=== PATIENT | female | born 1935 | race Caucasian/White ===

== ENCOUNTER → 2017-10-17 | Outpatient (CLI) | payer OTHER ==
[~2017-10-17] MED LIST: ACET325 PO; ACETAMINOPHEN500 MG PO; ACYC400 PO; BISA10S PR; Bactrim Ds Tab1 EACH PO; CALCAVITD PO; CIPRO500 MG PO; CLOB.05TO; CLON.5 PO; CLON1 PO; CLOP75 PO; COSENTYX P150 MG/11 SC; FAMO40 PO; FENT25TP TOP; FENTANYL TOP; GAS X; HYDACE7.5 PO; HYDMOR2; HYDR1TAB94 PO; Keflex500 MG PO; LOPE2C PO; METO25 PO; METO25ER PO; MULVITA PO; MULVITMIND; Milk Of Ma400 MG/5 M PO; NYSTATIN1 EAC1 MC; ONDA4ODT MM; OSEL75CA PO; OXYC5 PO; Omeprazole20 M1; PREG150 PO; PREG25 PO; PREG50 PO; PREG75 PO; PROM25; SUCR1 PO; TRIA80TC TOP; ZOLP6.25 PO; [UNRECOGNIZED DRUG - CODE] PO; [UNRECOGNIZED DRUG - OTHER] PO
[2017-10-18 16:31] LABS: Appearance, Urine Turbid (Clear); Blood, Urine 1+ (Neg); Color, Urine Amber (P-Yellow); Glucose Qualitative, Urine Neg (Neg); Ketones, Urine 2+ (Neg); Leukocyte Esterase, Urine 2+ (Neg); Nitrite, Urine Neg (Neg); Protein, Urine 2+ (Neg); Urobilinogen, Urine 2+ (Normal)
[2017-10-18 16:37] LABS: Bilirubin, Urine 1+ (Neg)
[2017-10-18 16:38] LABS: Amorphous Heavy (0-Heavy); Bacteria Many /hpf; Calcium Oxalate Crystals Few /hpf; Red Blood Cells, Urine 0-2 /hpf (0-2); Squamous Epithelial Cells Not Seen /hpf (Few); White Blood Cells, Urine 0-2 /hpf (0-5)
== END ==
LOC: LAB SHORT 17:20
DX: N39.0 Urinary tract infection, site not specified (principal)
CPT/HCPCS: 81001; 87077; 87086; 87186

== ENCOUNTER 2017-11-04 12:14 | Emergency (ER) | payer OTHER ==
[~2017-11-04] VITALS: Ht 139.7 cm; Wt 38.6 kg
[~2017-11-04 12:14] MED LIST changes: -CLOB.05TO; -COSENTYX P150 MG/11 SC; -HYDR1TAB94 PO; -OSEL75CA PO; -Omeprazole20 M1; -PREG25 PO
[2017-11-04] MEDS ORDERED: CLOB.05TO (13:03)
[2017-11-04] MEDS ORDERED: COSENTYX P150 MG/11 SC (13:05)
[2017-11-04] MEDS ORDERED: Omeprazole20 M1 (13:06)
[2017-11-04] MEDS ORDERED: HYDR1TAB94 PO (13:07)
[2017-11-04] MEDS ORDERED: OSEL75CA PO (13:08)
[2017-11-05] MEDS ORDERED: PREG25 PO (18:40)
== END 2017-11-04 15:09 | disposition home or self-care (01) ==
LOC: ER 12:14
DX: S70.02XA Contusion of left hip, initial encounter (principal); S40.012A Contusion of left shoulder, initial encounter; S00.83XA Contusion of other part of head, initial encounter; X58.XXXA Exposure to other specified factors, initial encounter; Z87.891 Personal history of nicotine dependence; Z88.0 Allergy status to penicillin; Z88.5 Allergy status to narcotic agent; Z88.8 Allergy status to other drugs, medicaments and biological substances; Z88.1 Allergy status to other antibiotic agents; Z79.899 Other long term (current) drug therapy; Z79.891 Long term (current) use of opiate analgesic
CPT/HCPCS: 73502; 99283

== ENCOUNTER 2017-11-05 18:23 | Emergency (ER) | payer OTHER ==
[~2017-11-05] VITALS: Ht 144.8 cm; Wt 36.3 kg
[~2017-11-05 18:23] MED LIST changes: +CLOB.05TO; +COSENTYX P150 MG/11 SC; +HYDR1TAB94 PO; +OSEL75CA PO; +Omeprazole20 M1
[2017-11-05 18:36] LABS: Source, Urine Catheter
[2017-11-05] MEDS ORDERED: PREG25 PO (18:40)
[2017-11-05 18:46] LABS: Blood, Urine 1+ (Neg); Glucose Qualitative, Urine Neg (Neg); Ketones, Urine 1+ (Neg); Leukocyte Esterase, Urine 1+ (Neg); Nitrite, Urine Neg (Neg); Protein, Urine 2+ (Neg); Specific Gravity, Urine 1.015 (1.003-1.022); Urobilinogen, Urine 3+ (Normal)
[2017-11-05 19:20] LABS: Appearance, Urine Hazy (Clear); Color, Urine Yellow (P-Yellow)
[2017-11-05 19:23] LABS: Bacteria Few /hpf; Red Blood Cells, Urine 0-2 /hpf (0-2); Squamous Epithelial Cells Few /hpf (Few); White Blood Cells, Urine 0-2 /hpf (0-5)
== END 2017-11-05 21:18 | disposition home or self-care (01) ==
LOC: ER 18:23
PROVIDERS: Emergency Medicine
DX: S80.12XA Contusion of left lower leg, initial encounter (principal); W19.XXXA Unspecified fall, initial encounter; Z88.1 Allergy status to other antibiotic agents; Z88.0 Allergy status to penicillin; Z88.5 Allergy status to narcotic agent; Z88.8 Allergy status to other drugs, medicaments and biological substances; Z79.899 Other long term (current) drug therapy; Z79.891 Long term (current) use of opiate analgesic; Z87.891 Personal history of nicotine dependence
CPT/HCPCS: 81001; 87077; 87086; 87186; 99283; P9612

== ENCOUNTER → 2017-12-15 | Outpatient (CLI) | payer OTHER ==
[~2017-12-15] MED LIST changes: +PREG25 PO
[2017-12-15 15:29] LABS: Bilirubin, Urine Neg (Neg); Blood, Urine 1+ (Neg); Glucose Qualitative, Urine Neg (Neg); Ketones, Urine Neg (Neg); Leukocyte Esterase, Urine 1+ (Neg); Nitrite, Urine Neg (Neg); Protein, Urine Neg (Neg); Urobilinogen, Urine 2+ (Normal)
[2017-12-15 16:00] LABS: Appearance, Urine Cloudy (Clear); Color, Urine Yellow (P-Yellow)
[2017-12-15 16:07] LABS: Bacteria Many /hpf; Red Blood Cells, Urine 0-2 /hpf (0-2); Squamous Epithelial Cells Few /hpf (Few)
== END | disposition home or self-care (01) ==
LOC: LAB SHORT 15:07 → LAB 15:07
DX: N39.0 Urinary tract infection, site not specified (principal)
CPT/HCPCS: 81001; 87077; 87086; 87186

== ENCOUNTER → 2018-03-04 | Outpatient (CLI) | payer OTHER ==
[2018-03-04 11:12] LABS: Bilirubin, Urine Neg (Neg); Blood, Urine 1+ (Neg); Glucose Qualitative, Urine Neg (Neg); Ketones, Urine Neg (Neg); Leukocyte Esterase, Urine 3+ (Neg); Nitrite, Urine Pos (Neg); Protein, Urine 1+ (Neg); Urobilinogen, Urine NORM (Normal); pH, Urine 6.5 (5.0-8.0)
[2018-03-04 11:32] LABS: Appearance, Urine Hazy (Clear); Color, Urine Yellow (P-Yellow)
[2018-03-04 11:37] LABS: White Blood Cells, Urine 25-50 /hpf (0-5)
[2018-03-04 11:38] LABS: Bacteria Mod /hpf; Squamous Epithelial Cells Few /hpf (Few)
== END ==
LOC: LAB SHORT 11:03 → LAB 11:03
DX: N39.0 Urinary tract infection, site not specified (principal)
CPT/HCPCS: 81001; 87077; 87086; 87186

== ENCOUNTER → 2018-04-04 | Outpatient (CLI) | payer OTHER ==
[2018-04-04 11:52] LABS: Bilirubin, Urine Neg (Neg); Blood, Urine 5+ (Neg); Glucose Qualitative, Urine Neg (Neg); Ketones, Urine Neg (Neg); Leukocyte Esterase, Urine 2+ (Neg); Nitrite, Urine Pos (Neg); Protein, Urine Neg (Neg); Specific Gravity, Urine 1.015 (1.003-1.022); Urobilinogen, Urine 1+ (Normal)
[2018-04-04 12:05] LABS: Appearance, Urine Clear (Clear); Color, Urine Yellow (P-Yellow)
[2018-04-04 12:08] LABS: Bacteria Many /hpf; Squamous Epithelial Cells Few /hpf (Few)
== END | disposition home or self-care (01) ==
LOC: LAB 11:13 → LAB SHORT 11:13
DX: N39.0 Urinary tract infection, site not specified (principal)
CPT/HCPCS: 81001; 87077; 87086; 87186

== ENCOUNTER → 2018-04-27 | Outpatient (CLI) | payer OTHER | END | disposition home or self-care (01) | LOC: LAB 16:45 → LAB SHORT 16:45 | DX: N39.0 Urinary tract infection, site not specified (principal) | CPT/HCPCS: 87077; 87086; 87186 ==

== ENCOUNTER → 2018-10-09 | Outpatient (CLI) | payer OTHER ==
[~2018-10-09] MED LIST changes: +CEPH500 PO; +Oxycodone-Apap1 EAC3 PO
[2018-10-09 15:41] LABS: Appearance, Urine Cloudy (Clear); Bilirubin, Urine Neg (Neg); Blood, Urine 1+ (Neg); Color, Urine Yellow (P-Yellow); Glucose Qualitative, Urine Neg (Neg); Ketones, Urine Neg (Neg); Leukocyte Esterase, Urine 1+ (Neg); Nitrite, Urine Pos (Neg); Protein, Urine 1+ (Neg); Urobilinogen, Urine 1+ (Normal); pH, Urine 6.5 (5.0-8.0)
[2018-10-09 15:47] LABS: Bacteria Many /hpf; Squamous Epithelial Cells Rare /hpf (Few)
== END | disposition home or self-care (01) ==
LOC: LAB SHORT 13:30 → LAB 13:30
DX: N39.0 Urinary tract infection, site not specified (principal)
CPT/HCPCS: 81001; 87077; 87086; 87186

== ENCOUNTER 2018-10-13 09:34 | Emergency (ER) | payer OTHER ==
[~2018-10-13] VITALS: Ht 137.2 cm; Wt 42.2 kg
[~2018-10-13 09:34] MED LIST changes: -CEPH500 PO; -Oxycodone-Apap1 EAC3 PO
[2018-10-13] MEDS ORDERED: Oxycodone-Apap1 EAC3 PO (10:05)
[2018-10-13] MEDS ORDERED: CEPH500 PO (11:42)
== END 2018-10-13 13:42 | disposition home or self-care (01) ==
LOC: ER 09:34
DX: S81.811A Laceration without foreign body, right lower leg, initial encounter (principal); S81.812A Laceration without foreign body, left lower leg, initial encounter; W22.8XXA Striking against or struck by other objects, initial encounter; Z87.891 Personal history of nicotine dependence; Z88.0 Allergy status to penicillin; Z88.8 Allergy status to other drugs, medicaments and biological substances; Z88.1 Allergy status to other antibiotic agents; Z88.5 Allergy status to narcotic agent; Z79.899 Other long term (current) drug therapy; Z79.891 Long term (current) use of opiate analgesic
CPT/HCPCS: 12005; 90471; 90714; 99283-25

== ENCOUNTER 2018-10-13 17:41 | Emergency (ER) | payer OTHER ==
[~2018-10-13] VITALS: Ht 147.3 cm; Wt 54.4 kg
[~2018-10-13 17:41] MED LIST changes: +CEPH500 PO; +Oxycodone-Apap1 EAC3 PO
== END 2018-10-13 18:00 | disposition home or self-care (01) ==
LOC: ER 17:41
DX: S81.812D Laceration without foreign body, left lower leg, subsequent encounter (principal); V29.9XXD Motorcycle rider (driver) (passenger) injured in unspecified traffic accident, subsequent encounter; Z88.0 Allergy status to penicillin; Z88.1 Allergy status to other antibiotic agents; Z88.8 Allergy status to other drugs, medicaments and biological substances; Z79.899 Other long term (current) drug therapy; Z79.891 Long term (current) use of opiate analgesic; Z87.891 Personal history of nicotine dependence

== ENCOUNTER → 2018-10-22 | Outpatient (CLI) | payer OTHER ==
[2018-10-22 15:13] LABS: Appearance, Urine Hazy (Clear); Bilirubin, Urine Neg (Neg); Blood, Urine Neg (Neg); Color, Urine Yellow (P-Yellow); Glucose Qualitative, Urine Neg (Neg); Ketones, Urine 1+ (Neg); Leukocyte Esterase, Urine 1+ (Neg); Nitrite, Urine Neg (Neg); Protein, Urine 1+ (Neg); Urobilinogen, Urine 2+ (Normal)
[2018-10-22 15:26] LABS: Bacteria Many /hpf; Red Blood Cells, Urine 0-2 /hpf (0-2); Squamous Epithelial Cells Not Seen /hpf (Few); White Blood Cells, Urine 0-2 /hpf (0-5)
== END | disposition home or self-care (01) ==
LOC: LAB SHORT 13:45 → LAB 13:45
DX: N39.0 Urinary tract infection, site not specified (principal)
CPT/HCPCS: 81001; 87077; 87086; 87186

== ENCOUNTER 2018-11-05 00:26 | Day surgery (SDC) | payer OTHER | END 2018-11-05 23:56 | disposition home or self-care (01) | LOC: WOUND 00:26 | PROC: 0KBT0ZZ Excision of Left Lower Leg Muscle, Open Approach (ICD-10-PCS; principal; 2018-11-05) | DX: S81.812A Laceration without foreign body, left lower leg, initial encounter (principal); T81.31XA Disruption of external operation (surgical) wound, not elsewhere classified, initial encounter; S81.811A Laceration without foreign body, right lower leg, initial encounter | CPT/HCPCS: G0463 ==

== ENCOUNTER → 2018-12-09 | Outpatient (CLI) | payer OTHER ==
[2018-12-09 18:40] LABS: Bilirubin, Urine Neg (Neg); Blood, Urine 1+ (Neg); Glucose Qualitative, Urine Neg (Neg); Ketones, Urine Neg (Neg); Leukocyte Esterase, Urine 2+ (Neg); Nitrite, Urine Neg (Neg); Protein, Urine 1+ (Neg); Specific Gravity, Urine 1.005 (1.003-1.022); Urobilinogen, Urine NORM (Normal)
[2018-12-09 18:45] LABS: Appearance, Urine Clear (Clear); Color, Urine Yellow (P-Yellow)
[2018-12-09 18:46] LABS: White Blood Cells, Urine 25-50 /hpf (0-5)
[2018-12-09 18:47] LABS: Bacteria Mod /hpf; Squamous Epithelial Cells Rare /hpf (Few)
== END | disposition home or self-care (01) ==
LOC: LAB 17:16 → LAB SHORT 17:16
DX: N39.0 Urinary tract infection, site not specified (principal)
CPT/HCPCS: 81001; 87077; 87086; 87186

== ENCOUNTER → 2019-01-23 | Outpatient (CLI) | payer OTHER ==
[2019-01-23 16:01] LABS: Source, Urine Clean Catch
[2019-01-23 16:16] LABS: Bilirubin, Urine Neg (Neg); Blood, Urine 1+ (Neg); Glucose Qualitative, Urine Neg (Neg); Ketones, Urine 1+ (Neg); Leukocyte Esterase, Urine 1+ (Neg); Nitrite, Urine Pos (Neg); Protein, Urine 1+ (Neg); Specific Gravity, Urine 1.015 (1.003-1.022); Urobilinogen, Urine 1+ (Normal); pH, Urine 6.5 (5.0-8.0)
[2019-01-23 17:19] LABS: Appearance, Urine Cloudy (Clear); Color, Urine Yellow (P-Yellow)
[2019-01-23 18:31] LABS: Amorphous Light (0-Heavy); Bacteria Many /hpf; Mucus Mod (0-Heavy); Red Blood Cells, Urine 0-2 /hpf (0-2); Squamous Epithelial Cells Mod /hpf (Few)
== END | disposition home or self-care (01) ==
LOC: LAB 13:00 → LAB SHORT 13:00
DX: N39.0 Urinary tract infection, site not specified (principal)
CPT/HCPCS: 81001; 87077; 87086; 87186

== ENCOUNTER → 2019-03-04 | Outpatient (CLI) | payer OTHER ==
[2019-03-05 10:22] LABS: Source, Urine Clean Catch
[2019-03-05 10:38] LABS: Bilirubin, Urine Neg (Neg); Blood, Urine 1+ (Neg); Glucose Qualitative, Urine Neg (Neg); Ketones, Urine Neg (Neg); Leukocyte Esterase, Urine 3+ (Neg); Nitrite, Urine Neg (Neg); Protein, Urine 1+ (Neg); Specific Gravity, Urine 1.025 (1.003-1.022); Urobilinogen, Urine 1+ (Normal)
[2019-03-05 10:52] LABS: Appearance, Urine Hazy (Clear); Color, Urine Yellow (P-Yellow)
[2019-03-05 10:53] LABS: Bacteria Many /hpf; Red Blood Cells, Urine 0-2 /hpf (0-2); Squamous Epithelial Cells Few /hpf (Few)
== END | disposition home or self-care (01) ==
LOC: LAB SHORT 16:45 → LAB 16:45
DX: N39.0 Urinary tract infection, site not specified (principal)
CPT/HCPCS: 81001; 87077; 87086; 87186

== ENCOUNTER 2019-03-15 19:55 | Emergency (ER) | payer OTHER ==
[~2019-03-15] VITALS: Ht 134.6 cm; Wt 43.1 kg
[2019-03-15] MEDS ORDERED: MYLANTA (20:25)
[2019-03-15] MEDS ORDERED: IBUPROFEN200 MG PO (20:26)
[2019-03-15] MEDS ORDERED: CHOL10002 PO (21:02)
[2019-03-15] MEDS ORDERED: CYAN500 PO (21:11)
[2019-03-15] MEDS ORDERED: NITR100CA PO (21:11)
== END 2019-03-16 00:13 | disposition home or self-care (01) ==
LOC: ER 19:55
DX: S89.92XA Unspecified injury of left lower leg, initial encounter (principal); W17.89XA Other fall from one level to another, initial encounter; Z88.1 Allergy status to other antibiotic agents; Z88.0 Allergy status to penicillin; Z88.5 Allergy status to narcotic agent; Z79.899 Other long term (current) drug therapy; Z79.891 Long term (current) use of opiate analgesic; Z87.891 Personal history of nicotine dependence
CPT/HCPCS: 73562-LT; 96372; 99283-25; A9270-GY; J1885

== ENCOUNTER 2019-04-28 08:59 | Emergency (ER) | payer OTHER ==
[~2019-04-28] VITALS: Ht 137.2 cm; Wt 40.4 kg
[~2019-04-28 08:59] MED LIST changes: +CHOL10002 PO; +CYAN500 PO; +IBUPROFEN200 MG PO; +MYLANTA; +NITR100CA PO
[2019-04-28] MEDS ORDERED: CETAPHIL473 ML (09:20)
[2019-04-28] MEDS ORDERED: ANTACID 1000-21 EACH PO (09:20)
[2019-04-28] MEDS ORDERED: CLORTRIMAZOLE (09:21)
[2019-04-28] MEDS ORDERED: MIRALAX17 GM PO (09:22)
[2019-04-28] MEDS ORDERED: Loratadine10 MG PO (09:22)
[2019-04-28] MEDS ORDERED: Milk Of Ma400 MG/5 M PO (09:22)
[2019-04-28] MEDS ORDERED: NYSTRITC (09:23)
[2019-04-28] MEDS ORDERED: Bactrim Ds Tab1 EACH PO (10:22)
[2019-04-28] MEDS ORDERED: Norco 5-325 Ta1 EACH PO (10:42)
== END 2019-04-28 10:53 | disposition home or self-care (01) ==
LOC: ER 08:59
DX: L89.619 Pressure ulcer of right heel, unspecified stage (principal); Z88.1 Allergy status to other antibiotic agents; Z88.0 Allergy status to penicillin; Z88.5 Allergy status to narcotic agent; Z79.899 Other long term (current) drug therapy; Z79.891 Long term (current) use of opiate analgesic; K21.9 Gastro-esophageal reflux disease without esophagitis; Z87.891 Personal history of nicotine dependence
CPT/HCPCS: 36415; 73630; 99283-25; A9270-GY

== ENCOUNTER → 2019-06-18 | Outpatient (CLI) | payer OTHER ==
[~2019-06-18] MED LIST changes: +ANTACID 1000-21 EACH PO; +CETAPHIL473 ML; +CLORTRIMAZOLE; +Loratadine10 MG PO; +MIRALAX17 GM PO; +NYSTRITC; +Norco 5-325 Ta1 EACH PO
== END | disposition home or self-care (01) ==
LOC: LAB 15:30 → LAB SHORT 15:30
DX: S81.809A Unspecified open wound, unspecified lower leg, initial encounter (principal)
CPT/HCPCS: 87070; 87205

== ENCOUNTER 2019-10-31 18:38 | Emergency (ER) | payer OTHER ==
[~2019-10-31] VITALS: Ht 147.3 cm; Wt 38.6 kg
== END 2019-10-31 23:15 | disposition home or self-care (01) ==
LOC: ER 18:38
DX: Z88.1 Allergy status to other antibiotic agents (principal); Z88.0 Allergy status to penicillin; Z88.5 Allergy status to narcotic agent; Z88.8 Allergy status to other drugs, medicaments and biological substances; Z79.899 Other long term (current) drug therapy; K21.9 Gastro-esophageal reflux disease without esophagitis; Z87.891 Personal history of nicotine dependence
CPT/HCPCS: 99283

== ENCOUNTER → 2020-01-27 | Outpatient (CLI) | payer OTHER ==
[2020-01-27 17:02] LABS: BASOPHILS ABSOLUTE AUTO 0.01 K/mm3 (0.00-0.23); BASOPHILS PERCENT AUTO 0 % (0-2); EOSINOPHILS ABSOLUTE AUTO 0.03 K/mm3 (0.00-0.68); EOSINOPHILS PERCENT AUTO 1 % (0-6); Hematocrit 30.9 % (33.0-51.0); Hemoglobin 10.2 g/dL (11.5-16.0); IMMATURE GRAN ABSOLUTE AUTO 0.01 K/mm3 (0.00-0.10); IMMATURE GRAN PERCENT AUTO 0 % (0-1); LYMPHOCYTES PERCENT AUTO 13 % (21-46); MONOCYTES ABSOLUTE AUTO 0.31 K/mm3 (0.16-1.47); MONOCYTES PERCENT AUTO 8 % (4-13); Mean Corpuscular HGB 35.2 pg (26.0-34.0); Mean Corpuscular Volume 107 fL (80-100); Mean Platelet Volume 11.9 fL (9.1-12.4); NEUTROPHILS ABSOLUTE AUTO 3.15 K/mm3 (1.96-9.15); NEUTROPHILS PERCENT AUTO 79 % (41-73); Platelet Count 130 K/mm3 (150-400); RDW Coefficient Variation 15.5 % (11.7-14.2); RDW Standard Deviation 61.1 fL (35.1-46.3); White Blood Cell Count 4.01 K/mm3 (4.00-11.30)
[2020-01-27 17:36] LABS: Alanine Aminotransfer (ALT/SGP 7 U/L (12-78); Albumin, Blood 2.5 g/dL (3.4-5.0); Albumin/Globulin Ratio 0.9 (0.8-1.8); Alk Phos 89 U/L (50-136); Anion Gap 6 mmol/L (6-16); Aspartate Aminotrans (AST/SGOT 19 U/L (12-37); Bilirubin, Total 0.8 mg/dL (0.1-1.0); Blood Urea Nitrogen 21 mg/dL (8-24); Bun/Creatinine Ratio 29.2 (12.0-20.0); CO2, Blood 26 mmol/L (21-32); Chloride, Blood 109 mmol/L (98-108); Creatinine, Blood 0.72 mg/dL (0.40-1.00); Globulin, Blood 2.7 g/dL (2.2-4.0); Glomerular Filtration Rate >60 (60-); Glucose, Blood 68 mg/dL (70-99); Potassium, Blood 3.5 mmol/L (3.5-5.5); Sodium, Blood 141 mmol/L (136-145); Total Protein, Blood 5.2 g/dL (6.4-8.2)
== END | disposition home or self-care (01) ==
LOC: LAB 15:49 → LAB SHORT 15:49
PROVIDERS: Nurse Practitioner Family
DX: I70.233 Atherosclerosis of native arteries of right leg with ulceration of ankle (principal); R60.0 Localized edema
CPT/HCPCS: 80053; 83880; 85025

== ENCOUNTER → 2020-02-11 | Outpatient (CLI) | payer OTHER ==
[2020-02-11 18:46] LABS: Blood, Urine 5+ (Neg); Glucose Qualitative, Urine Neg (Neg); Ketones, Urine 1+ (Neg); Leukocyte Esterase, Urine 3+ (Neg); Nitrite, Urine Pos (Neg); Protein, Urine 3+ (Neg); Urobilinogen, Urine 2+ (Normal)
[2020-02-11 18:56] LABS: Bilirubin, Urine 1+ (Neg)
[2020-02-11 18:57] LABS: Appearance, Urine Cloudy (Clear); Color, Urine Amber (P-Yellow)
[2020-02-11 19:01] LABS: Bacteria Mod /hpf; Red Blood Cells, Urine 50-100 /hpf (0-2); Squamous Epithelial Cells Few /hpf (Few)
[2020-02-11 19:02] LABS: Calcium Oxalate Crystals Few /hpf
== END | disposition home or self-care (01) ==
LOC: LAB SHORT 18:37 → LAB 18:37
DX: N39.0 Urinary tract infection, site not specified (principal)
CPT/HCPCS: 81001; 87077; 87086; 87186

== ENCOUNTER → 2020-09-06 | Outpatient (CLI) | payer OTHER ==
[2020-09-06 12:45] LABS: Bilirubin, Urine Neg (Neg); Blood, Urine 5+ (Neg); Glucose Qualitative, Urine Neg (Neg); Ketones, Urine 1+ (Neg); Leukocyte Esterase, Urine 3+ (Neg); Nitrite, Urine Pos (Neg); Protein, Urine 3+ (Neg); Urobilinogen, Urine 2+ (Normal)
[2020-09-06 12:56] LABS: Appearance, Urine Hazy (Clear); Color, Urine Yellow (P-Yellow)
[2020-09-06 12:58] LABS: Bacteria Mod /hpf; Squamous Epithelial Cells Mod /hpf (Few)
== END | disposition home or self-care (01) ==
LOC: LAB 11:42 → LAB SHORT 11:42
PROVIDERS: Physician Assistant
DX: N39.0 Urinary tract infection, site not specified (principal)
CPT/HCPCS: 81001; 87077; 87086; 87186

== ENCOUNTER → 2020-09-27 | Outpatient (CLI) | payer OTHER ==
[~2020-09-27] MED LIST changes: +CLONAZEPAM1 MG PO; +FENTANYL1 EA10 TOP; +OMEP20ER PO; +OXYCODONE-ACET1 EAC3 PO; +PREGABALIN100 MG PO; +TREMFYA100 MG/1 M
[2020-09-27 15:11] LABS: Appearance, Urine Hazy (Clear); Bilirubin, Urine Neg (Neg); Blood, Urine 1+ (Neg); Color, Urine Yellow (P-Yellow); Glucose Qualitative, Urine Neg (Neg); Ketones, Urine Neg (Neg); Leukocyte Esterase, Urine 2+ (Neg); Nitrite, Urine Pos (Neg); Protein, Urine 1+ (Neg); Urobilinogen, Urine 1+ (Normal)
[2020-09-27 15:34] LABS: Bacteria Many /hpf; Red Blood Cells, Urine 0-2 /hpf (0-2); Squamous Epithelial Cells Rare /hpf (Few)
== END | disposition home or self-care (01) ==
LOC: LAB SHORT 13:40 → LAB 13:40
PROVIDERS: Physician Assistant
DX: N39.0 Urinary tract infection, site not specified (principal)
CPT/HCPCS: 81001; 87077; 87086; 87186

== ENCOUNTER 2021-02-22 10:02 | Emergency (ER) | payer OTHER ==
[~2021-02-22] VITALS: Ht 152.4 cm; Wt 40.8 kg
[~2021-02-22 10:02] MED LIST changes: -CLONAZEPAM1 MG PO; -FENTANYL1 EA10 TOP; -OMEP20ER PO; -OXYCODONE-ACET1 EAC3 PO; -PREGABALIN100 MG PO; -TREMFYA100 MG/1 M
[2021-02-22 10:44] LABS: Source, Urine Catheter
[2021-02-22 11:17] LABS: Blood, Urine 2+ (Neg); Glucose Qualitative, Urine Neg (Neg); Ketones, Urine 1+ (Neg); Leukocyte Esterase, Urine 1+ (Neg); Nitrite, Urine Neg (Neg); Protein, Urine 2+ (Neg); Specific Gravity, Urine 1.025 (1.003-1.022); Urobilinogen, Urine 4+ (Normal)
[2021-02-22 11:18] LABS: Bilirubin, Urine 2+ (Neg)
[2021-02-22 11:19] LABS: Appearance, Urine Hazy (Clear); Color, Urine Orange (P-Yellow); Red Blood Cells, Urine 0-2 /hpf (0-2)
[2021-02-22 11:20] LABS: Amorphous Heavy (0-Heavy); Bacteria Few /hpf; Squamous Epithelial Cells Not Seen /hpf (Few)
== END 2021-02-22 13:02 | disposition home or self-care (01) ==
LOC: ER 10:02
PROVIDERS: Emergency Medicine
DX: R41.0 Disorientation, unspecified (principal); R40.0 Somnolence; R53.1 Weakness; K21.9 Gastro-esophageal reflux disease without esophagitis; Z88.0 Allergy status to penicillin; Z88.1 Allergy status to other antibiotic agents; Z88.5 Allergy status to narcotic agent; Z79.899 Other long term (current) drug therapy; Z87.891 Personal history of nicotine dependence
CPT/HCPCS: 81001; 87077; 87086; 87186; 99283; P9612

== ENCOUNTER → 2021-03-08 | Outpatient (CLI) | payer OTHER ==
[~2021-03-08] MED LIST changes: +CLONAZEPAM1 MG PO; +FENTANYL1 EA10 TOP; +OMEP20ER PO; +OXYCODONE-ACET1 EAC3 PO; +PREGABALIN100 MG PO; +TREMFYA100 MG/1 M
== END ==
LOC: LAB 14:29 → LAB SHORT 14:29
DX: L08.0 Pyoderma (principal)
CPT/HCPCS: 87070; 87077; 87186; 87205

== ENCOUNTER 2021-04-05 15:21 | Emergency (ER) | payer OTHER, MEDICARE ==
[~2021-04-05] VITALS: Ht 137.2 cm; Wt 39.0 kg
[~2021-04-05 15:21] MED LIST changes: -CLONAZEPAM1 MG PO; -FENTANYL1 EA10 TOP; -OMEP20ER PO; -OXYCODONE-ACET1 EAC3 PO; -PREGABALIN100 MG PO; -TREMFYA100 MG/1 M
[2021-04-05] MEDS ORDERED: FENTANYL1 EA10 TOP (15:33)
[2021-04-05] MEDS ORDERED: PREGABALIN100 MG PO (15:34)
[2021-04-05] MEDS ORDERED: OXYCODONE-ACET1 EAC3 PO (15:34)
[2021-04-05] MEDS ORDERED: CLONAZEPAM1 MG PO (15:34)
[2021-04-05] MEDS ORDERED: OMEP20ER PO (15:34)
[2021-04-05] MEDS ORDERED: TREMFYA100 MG/1 M (15:34)
== END 2021-04-05 19:51 | disposition home or self-care (01) ==
LOC: ER 15:21
DX: I95.9 Hypotension, unspecified (principal); K21.9 Gastro-esophageal reflux disease without esophagitis; Z79.899 Other long term (current) drug therapy; Z88.1 Allergy status to other antibiotic agents; Z88.0 Allergy status to penicillin; Z88.5 Allergy status to narcotic agent; Z88.8 Allergy status to other drugs, medicaments and biological substances; Z87.891 Personal history of nicotine dependence
CPT/HCPCS: 99283